=== PATIENT | female | born 1950 | race Caucasian/White ===

== ENCOUNTER 2019-03-17 10:19 | Inpatient (IN) | payer MEDICARE, OTHER ==
[~2019-03-17] VITALS: Ht 160 cm; Wt 113.6 kg
[~2019-03-17 10:19] MED LIST: ASPI-1265 PO; ATOR40TA71 PO; HYDR12.5 PO; INSU100V12 SQ; INSU100V36 SQ; LISI40TA4 PO; LORA10TA7 PO; METF-438 PO; NORT25CA PO; SENN-93 PO; SERT-153 PO
--- NOTE | 2019-03-17 10:57 | NUR ---
awaiting ed provider.
[2019-03-17 11:28] LABS: BASOPHILS % (AUTO) 0.2 % (0-1); EOSINOPHILS % (AUTO) 0.4 % (0-6); HEMATOCRIT 41.5 % (35.0-45.0); HEMOGLOBIN 14.1 g/dl (12.0-16.0); LYMPHOCYTES # (AUTO) 0.8 X10'3 (1.1-4.8); LYMPHOCYTES % (AUTO) 8.6 % (21-51); MEAN CORPUSCULAR HEMOGLOBIN 29.2 PG (27.0-31.0); MEAN CORPUSCULAR VOLUME 85.6 FL (78-98); MEAN PLATELET VOLUME 9.3 FL (7.4-10.4); MONOCYTES # (AUTO) 0.6 X10'3 (0-0.9); MONOCYTES % (AUTO) 5.9 % (2-12); NEUTROPHILS # (AUTO) 7.9 X10'3 (1.8-7.7); NEUTROPHILS % (AUTO) 84.9 % (42-75); PLATELET COUNT 73 X10'3 (140-440); RED BLOOD COUNT 4.85 X10'6 (4.20-5.60); RED CELL DISTRIBUTION WIDTH 15.1 % (11.5-14.5); WHITE BLOOD COUNT 9.3 X10'3 (4.5-11.0)
[2019-03-17 11:47] LABS: ALANINE AMINOTRANSFERASE 19 U/L (12-78); ALBUMIN 3.2 G/DL (3.4-5.0); ALKALINE PHOSPHATASE 107 IU/L (46-116); ANION GAP 7 (8-16); ASPARTATE AMINO TRANSFERASE 21 U/L (10-37); BILIRUBIN,TOTAL 1.1 MG/DL (0.1-1.0); BLOOD UREA NITROGEN 10 MG/DL (7-18); BUN/CREATININE RATIO 20.4 (6.6-38.0); CALCIUM 8.4 MG/DL (8.5-10.1); CHLORIDE 105 MMOL/L (99-107); CREATININE 0.49 MG/DL (0.40-0.90); GLUCOSE 133 MG/DL (70-104); LIPASE 72 U/L (73-393); SODIUM 143 MMOL/L (135-145); TOTAL CARBON DIOXIDE 30.9 MMOL/L (24-32); TOTAL PROTEIN 6.4 G/DL (6.4-8.2); eGFR > 90 ML/MIN
[2019-03-17 12:01] LABS: CLARITY,URINE SLIGHTLY CLOUDY (Clear); COLOR,URINE YELLOW (Yellow); GLUCOSE, URINE NEGATIVE (Neg); KETONES,URINE NEGATIVE (Neg); LEUKOCYTE ESTERASE ,URINE NEGATIVE (Neg); NITRITES, URINE NEGATIVE (Neg); OCCULT BLOOD,URINE TRACE-INTACT (Neg); PROTEIN,URINE 30 mg/dl (Neg)
--- NOTE | 2019-03-17 12:06 | NUR ---
stool sample sent to the lab.Patient on contact isolation r/o cdiff.
[2019-03-17 12:08] LABS: POTASSIUM 2.7 MMOL/L (3.5-5.1)
[2019-03-17 12:10] LABS: UA COLLECTION TYPE FOLEY CATH
[2019-03-17 12:20] LABS: MUCUS STRANDS MANY /LPF (Neg)
[2019-03-17 12:23] LABS: BACTERIA,URINE FEW /HPF (Neg); TRANSITIONAL EPI CELLS,URINE FEW /HPF; WBC,URINE 0-4 /HPF (0-4)
[2019-03-17 12:29] LABS: SQUAMOUS EPITHELIAL CELL,UR MODERATE /LPF (FEW)
[2019-03-17 12:30] LABS: COARSE GRANULAR CAST 0-3 /LPF (NEGATIVE)
[2019-03-17] MEDS ORDERED: pantoprazole 40 MG vial IV ONE (12:45)
[2019-03-17] MEDS ORDERED: potassium Cl 10 mEq/100mL bag IV ONE (12:55)
[2019-03-17] MEDS ORDERED: METF-436 PO (13:21)
[2019-03-17] MEDS ORDERED: HYDR25TA4 PO (13:21)
[2019-03-17] MEDS ORDERED: INSU100I31 SQ (13:22)
[2019-03-17] MEDS ORDERED: NADO20TA4 PO (13:22)
[2019-03-17] MEDS ORDERED: OMEP-50 PO (13:22)
[2019-03-17] MEDS: normal saline 1000ml 1,000 ML IV SCH (13:32)
[2019-03-17] MEDS ORDERED: magnesium Cl slow-release 64mg tablet PO PRN (13:35)
[2019-03-17] MEDS ORDERED: potassium CL 10mEq/100ml bag 100 ML IV PRN ×2 (13:35)
[2019-03-17] MEDS ORDERED: ondansetron/PF 4mg/2ml inj IV PRN (13:35)
[2019-03-17] MEDS ORDERED: acetaminophen 325mg tablet PO PRN ×2 (13:35)
[2019-03-17] MEDS ORDERED: mag hydrox/Alum hydrox/simeth 30ml oral suspension PO PRN (13:35)
[2019-03-17] MEDS ORDERED: magnesium 4gm in 100ml NS 100 ML IV PRN (13:35)
[2019-03-17] MEDS ORDERED: magnesium 2GM in 50ml NS 50 ML IV PRN (13:35)
[2019-03-17] MEDS ORDERED: magnesium hydroxide 30ml (MOM) UD suspension PO PRN (13:35)
[2019-03-17 13:43] LABS: C DIFF ANTIGEN POSITIVE (NEGATIVE); C DIFF SPECIMEN=DIARRHEA? ACCEPTABLE; C DIFFICILE TOXINS A&B POSITIVE (Neg)
[2019-03-17] MEDS ORDERED: metroNIDAZOLE-Flagyl 500mg/NS 100 ML IV STA (14:41)
[2019-03-17] MEDS ORDERED: dextrose ORAL solution 15 GM/59 ML bottle PO PRN ×2 (14:45)
[2019-03-17] MEDS ORDERED: MESSAGE TO PHARMACY PO ONE (14:45)
[2019-03-17] MEDS ORDERED: glucagon, human recombinant 1mg kit SUBCUT PRN (14:45)
[2019-03-17] MEDS ORDERED: dextrose 50%-water 50ml dispensing syringe IV PRN ×2 (14:45)
--- NOTE | 2019-03-17 14:46 | NUR ---
Paged Dr. Gandhi to get order for diet and also if we can start patient on Vanco for C. diff.
[2019-03-17 14:50] VITALS: BP 146/55
[2019-03-17] MEDS: vancomycin 125mg/5ml ORAL solution 5ml UD bottle PO SCH ×3 (14:50→20:04)
[2019-03-17] MEDS: potassium Cl 20 mEq SR tablet PO PRN ×2 (15:22→22:20)
[2019-03-17] MEDS ORDERED: pantoprazole 40MG/NS 100ML BAG 100 ML IV SCH (16:00)
[2019-03-17 18:00] VITALS: BP 156/60
--- NOTE | 2019-03-17 18:50 | NUR ---
Problems reprioritized. Patient report given, questions answered & plan of care reviewed with Rafa KUHN.
[2019-03-17] MEDS: metoprolol tartrate 25mg tablet PO SCH (20:05)
[2019-03-17] MEDS ORDERED: metroNIDAZOLE 500mg tablet PO SCH (21:00)
[2019-03-17] MEDS: insulin glargine (Lantus) pen - multi-dose SQ SCH (21:00)
[2019-03-18] MEDS: normal saline 1000ml 1,000 ML IV SCH ×2 (01:28→10:31)
[2019-03-18 05:19] LABS: BASOPHILS % (AUTO) 0.1 % (0-1); EOSINOPHILS % (AUTO) 0.6 % (0-6); HEMATOCRIT 38.8 % (35.0-45.0); HEMOGLOBIN 13.3 g/dl (12.0-16.0); LYMPHOCYTES # (AUTO) 0.7 X10'3 (1.1-4.8); LYMPHOCYTES % (AUTO) 12.1 % (21-51); MEAN CORPUSCULAR HEMOGLOBIN 29.6 PG (27.0-31.0); MEAN CORPUSCULAR HGB CONC 34.2 g/dL (33.0-36.5); MEAN CORPUSCULAR VOLUME 86.7 FL (78-98); MEAN PLATELET VOLUME 9.3 FL (7.4-10.4); MONOCYTES # (AUTO) 0.4 X10'3 (0-0.9); MONOCYTES % (AUTO) 7.2 % (2-12); NEUTROPHILS # (AUTO) 4.9 X10'3 (1.8-7.7); PLATELET COUNT 59 X10'3 (140-440); RED BLOOD COUNT 4.47 X10'6 (4.20-5.60); WHITE BLOOD COUNT 6.1 X10'3 (4.5-11.0)
[2019-03-18 05:23] LABS: ALBUMIN 2.8 G/DL (3.4-5.0); ANION GAP 11 (8-16); BLOOD UREA NITROGEN 11 MG/DL (7-18); BUN/CREATININE RATIO 26.8 (6.6-38.0); CALCIUM 8.2 MG/DL (8.5-10.1); CHLORIDE 107 MMOL/L (99-107); CREATININE 0.41 MG/DL (0.40-0.90); GLUCOSE 230 MG/DL (70-104); MAGNESIUM 1.7 MG/DL (1.5-2.4); SODIUM 142 MMOL/L (135-145); TOTAL CARBON DIOXIDE 24.2 MMOL/L (24-32); eGFR > 90 ML/MIN
[2019-03-18 05:27] LABS: POTASSIUM 2.9 MMOL/L (3.5-5.1)
--- NOTE | 2019-03-18 06:30 | NUR ---
Problems reprioritized. Patient report given, questions answered & plan of care reviewed with Jannette KUHN.
[2019-03-18 06:34] LABS: OCCULT BLOOD STOOL POSITIVE (Neg)
[2019-03-18 07:00] VITALS: BP 149/65
[2019-03-18] MEDS: vancomycin 125mg/5ml ORAL solution 5ml UD bottle PO SCH ×4 (07:10→20:08)
[2019-03-18] MEDS: atorvastatin 20mg tablet PO SCH (07:11)
[2019-03-18] MEDS: pantoprazole 40mg Tablet.DR PO SCH (07:11)
[2019-03-18] MEDS: potassium Cl 20 mEq SR tablet PO PRN ×3 (07:12→16:11)
[2019-03-18] MEDS: HYDROchlorothiazide 25mg tablet PO SCH (07:13)
[2019-03-18] MEDS: sertraline 50mg tablet PO SCH (07:13)
[2019-03-18] MEDS: metoprolol tartrate 25mg tablet PO SCH ×2 (07:13→20:10)
[2019-03-18] MEDS: K and/or MAG REPLACEMENT MC SCH (07:14)
[2019-03-18] MEDS ORDERED: enoxaparin 40mg/0.4ml syringe SQ SCH (08:00)
[2019-03-18] MEDS: insulin Lispro (HumaLOG) vial - multi-dose SQ SCH ×3 (09:14→20:33)
--- NOTE | 2019-03-18 10:43 | NUR ---
MD WINTERS MADE AWARE OF POTASSIUM LEVEL, PLATELET LEVEL, POSITIVE STOOL OCCULT, AND LOW GRADE FEVER. ONE TIME ONLY DOSE OF MAGNESIUM ORDERED FOR POTASSIUM ABSORPTION.
[2019-03-18 11:00] VITALS: BP 133/58
[2019-03-18] MEDS ORDERED: magnesium oxide 400mg tablet PO ONE (12:00)
--- NOTE | 2019-03-18 18:21 | NUR ---
Problems reprioritized. Patient report given, questions answered & plan of care reviewed with Jovita KUHN. Pt. has no needs at this time.
[2019-03-18 19:00] VITALS: BP 146/63
--- NOTE | 2019-03-18 19:52 | NUR ---
Nutrition consult received re: low residue diet/diarrhea/diabetes. Noted that patient is already receiving carb controlled, low residue diet. Her HgA1c is 8 and Blood Glucose ranging from 110-261 mg/dl. Per MD note patient has acute C.diff with active diarrhea, had 11 liquid bowel movements today. She has increased protein and hydrations needs d/t C.diff infection. She will need written high protein education handout with verbal review and written DM education handout with verbal review and referral to outpatient DM education class. Will provide written education when C.diff is cleared. RD will meet with patient to provide verbal education. Current appetite is great, eating 75-100% of meals and is meeting needs using IBW. Recommend: 1. continue carb controlled, low residue diet 2. patient needs written DM and written high protein education handout 3. wt per rx Addendum: 03/18/19 at [address] Amended: Links added.
[2019-03-18] MEDS: insulin glargine (Lantus) pen - multi-dose SQ SCH (20:31)
[2019-03-19] VITALS: BP 125/71
[2019-03-19 04:44] LABS: BASOPHILS % (AUTO) 0.1 % (0-1); EOSINOPHILS # (AUTO) 0.1 X10'3 (0-0.9); EOSINOPHILS % (AUTO) 1.3 % (0-6); HEMATOCRIT 36.9 % (35.0-45.0); HEMOGLOBIN 12.6 g/dl (12.0-16.0); LYMPHOCYTES # (AUTO) 0.7 X10'3 (1.1-4.8); MEAN CORPUSCULAR HEMOGLOBIN 29.5 PG (27.0-31.0); MEAN CORPUSCULAR HGB CONC 34.2 g/dL (33.0-36.5); MEAN PLATELET VOLUME 9.4 FL (7.4-10.4); MONOCYTES # (AUTO) 0.3 X10'3 (0-0.9); MONOCYTES % (AUTO) 8.3 % (2-12); NEUTROPHILS % (AUTO) 72.3 % (42-75); PLATELET COUNT 58 X10'3 (140-440); RED BLOOD COUNT 4.29 X10'6 (4.20-5.60); RED CELL DISTRIBUTION WIDTH 15.4 % (11.5-14.5); WHITE BLOOD COUNT 4.1 X10'3 (4.5-11.0)
[2019-03-19 04:49] LABS: ALBUMIN 2.6 G/DL (3.4-5.0); ANION GAP 8 (8-16); BLOOD UREA NITROGEN 8 MG/DL (7-18); BUN/CREATININE RATIO 20.5 (6.6-38.0); CHLORIDE 109 MMOL/L (99-107); CREATININE 0.39 MG/DL (0.40-0.90); GLUCOSE 268 MG/DL (70-104); MAGNESIUM 1.8 MG/DL (1.5-2.4); POTASSIUM 3.4 MMOL/L (3.5-5.1); SODIUM 143 MMOL/L (135-145); TOTAL CARBON DIOXIDE 25.9 MMOL/L (24-32); eGFR > 90 ML/MIN
--- NOTE | 2019-03-19 06:09 | NUR ---
Problems reprioritized. Patient report given, questions answered & plan of care reviewed with Jannette KUHN. Addendum: 03/19/19 at 0609 by Jovita Do RN Amended: Links added.
[2019-03-19 08:00] VITALS: BP 154/61
[2019-03-19] MEDS: K and/or MAG REPLACEMENT MC SCH (08:00)
[2019-03-19] MEDS: HYDROchlorothiazide 25mg tablet PO SCH (09:23)
[2019-03-19] MEDS: potassium Cl 20 mEq SR tablet PO PRN ×3 (09:23→17:52)
[2019-03-19] MEDS: pantoprazole 40mg Tablet.DR PO SCH (09:23)
[2019-03-19] MEDS: vancomycin 125mg/5ml ORAL solution 5ml UD bottle PO SCH ×4 (09:24→21:34)
[2019-03-19] MEDS: metoprolol tartrate 25mg tablet PO SCH ×2 (09:24→19:35)
[2019-03-19] MEDS: atorvastatin 20mg tablet PO SCH (09:24)
[2019-03-19] MEDS: sertraline 50mg tablet PO SCH (09:24)
[2019-03-19] MEDS: insulin Lispro (HumaLOG) vial - multi-dose SQ SCH ×3 (09:32→19:25)
[2019-03-19 11:00] VITALS: BP 124/70
--- NOTE | 2019-03-19 16:48 | NUR ---
Pt. removed her own rectal tube stating "it came out of place". Tube still inflated. No damage to rectal area seen, no blood noted. MD Gandhi aware. Pt. would prefer that another rectal tube NOT be placed. Provided with briefs to support any incontinence.
--- NOTE | 2019-03-19 18:28 | NUR ---
Problems reprioritized. Patient report given, questions answered & plan of care reviewed with Bao KUHN. Pt. has no needs at this time, eating dinner in room awake and alert, able to communicate.
[2019-03-19 18:40] VITALS: BP 128/53
[2019-03-19] MEDS: insulin glargine (Lantus) pen - multi-dose SQ SCH (21:37)
[2019-03-20] VITALS: BP 105/59
[2019-03-20 06:10] LABS: BASOPHILS % (AUTO) 0.3 % (0-1); EOSINOPHILS # (AUTO) 0.1 X10'3 (0-0.9); EOSINOPHILS % (AUTO) 1.6 % (0-6); HEMATOCRIT 35.8 % (35.0-45.0); HEMOGLOBIN 12.2 g/dl (12.0-16.0); LYMPHOCYTES # (AUTO) 0.9 X10'3 (1.1-4.8); LYMPHOCYTES % (AUTO) 27.1 % (21-51); MEAN CORPUSCULAR HEMOGLOBIN 29.5 PG (27.0-31.0); MEAN CORPUSCULAR HGB CONC 34.1 g/dL (33.0-36.5); MEAN CORPUSCULAR VOLUME 86.4 FL (78-98); MEAN PLATELET VOLUME 9.7 FL (7.4-10.4); MONOCYTES # (AUTO) 0.3 X10'3 (0-0.9); MONOCYTES % (AUTO) 10.2 % (2-12); NEUTROPHILS % (AUTO) 60.8 % (42-75); PLATELET COUNT 65 X10'3 (140-440); RED BLOOD COUNT 4.14 X10'6 (4.20-5.60); RED CELL DISTRIBUTION WIDTH 14.8 % (11.5-14.5); WHITE BLOOD COUNT 3.3 X10'3 (4.5-11.0)
[2019-03-20 06:14] LABS: ALBUMIN 2.6 G/DL (3.4-5.0); ANION GAP 7 (8-16); BLOOD UREA NITROGEN 7 MG/DL (7-18); BUN/CREATININE RATIO 15.2 (6.6-38.0); CALCIUM 8.3 MG/DL (8.5-10.1); CHLORIDE 111 MMOL/L (99-107); CREATININE 0.46 MG/DL (0.40-0.90); GLUCOSE 152 MG/DL (70-104); MAGNESIUM 1.7 MG/DL (1.5-2.4); POTASSIUM 3.5 MMOL/L (3.5-5.1); SODIUM 146 MMOL/L (135-145); TOTAL CARBON DIOXIDE 27.7 MMOL/L (24-32); eGFR > 90 ML/MIN
--- NOTE | 2019-03-20 06:45 | NUR ---
Problems reprioritized. Patient report given, questions answered & plan of care reviewed with LEONEL. Addendum: 03/20/19 at 0646 by Carlton Easton RN Amended: Links added.
--- NOTE | 2019-03-20 06:49 | NUR ---
Patient in room [facility] 341. I have received report from Bao KUHN and had the opportunity to ask questions and assume patient care.
[2019-03-20 07:00] VITALS: BP 140/58
[2019-03-20] MEDS: pantoprazole 40mg Tablet.DR PO SCH (07:30)
[2019-03-20] MEDS: K and/or MAG REPLACEMENT MC SCH (08:00)
[2019-03-20] MEDS: metoprolol tartrate 25mg tablet PO SCH (08:16)
[2019-03-20] MEDS: sertraline 50mg tablet PO SCH (08:16)
[2019-03-20] MEDS: atorvastatin 20mg tablet PO SCH (08:17)
[2019-03-20] MEDS: vancomycin 125mg/5ml ORAL solution 5ml UD bottle PO SCH ×3 (08:18→16:58)
[2019-03-20] MEDS: HYDROchlorothiazide 25mg tablet PO SCH (08:18)
[2019-03-20] MEDS: insulin Lispro (HumaLOG) vial - multi-dose SQ SCH ×2 (08:20→13:53)
[2019-03-20 11:00] VITALS: BP 136/63
--- NOTE | 2019-03-20 15:27 | NUR ---
F/u: Pt PO 100% meals meeting protein needs this admit. Pt seen by MARIUSZ for written/verbal DM ed w/ RD contact information provided. Pt declines additional DM concerns at this time. Addendum: 03/20/19 at [address] Amended: Links added.
[2019-03-20] MEDS ORDERED: VANC5VIA PO (16:03)
--- NOTE | 2019-03-20 17:20 | NUR ---
Discharged patient home accompanied by her family. Discharge instructions given to patient, patient verbalized understanding of all instructions made. Peripheral IV catheter removed, tip intact. A1C and diabetes survival skills information as well as information about C. diff discussed with patient and family at bedside. Prescription for Vanco PO called in by Rojas scott [facility] pharmacy at [facility] Instructed patient to ensure she has all her belongings with her. Night time dose of Vanco PO sent with patient, hospital pharmacy staff said that I could sent the night time dose of Vanco PO with the patient upon discharge.
== END 2019-03-20 17:27 | disposition home or self-care (01) | DRG 373 ==
LOC: ER 10:20 → ED HOLD 14:41 → SUR 3N 14:42
PROVIDERS: ADMIT Hospitalist; ATTEND Family Medicine
DX: A04.72 Enterocolitis due to Clostridium difficile, not specified as recurrent (principal); K76.0 Fatty (change of) liver, not elsewhere classified; D69.6 Thrombocytopenia, unspecified; E78.5 Hyperlipidemia, unspecified; E86.0 Dehydration; E11.9 Type 2 diabetes mellitus without complications; E87.6 Hypokalemia; F32.9 Major depressive disorder, single episode, unspecified; I10 Essential (primary) hypertension; K21.9 Gastro-esophageal reflux disease without esophagitis; K74.60 Unspecified cirrhosis of liver; Z88.8 Allergy status to other drugs, medicaments and biological substances; Z90.49 Acquired absence of other specified parts of digestive tract; Z79.899 Other long term (current) drug therapy; Z79.82 Long term (current) use of aspirin
CPT/HCPCS: 36415; 80048; 80053; 81001; 82272; 82948; 83036; 83690; 83735; 84132; 85025; 85610; 86885; 86900; 86901; 87081; 87324; 87449; 96365; 99285; C9113; G0378; J1815; J3480; J7030

== ENCOUNTER 2022-07-23 08:31 | Emergency (ER) | payer MEDICARE, MEDICAID ==
[~2022-07-23] VITALS: Ht 160 cm; Wt 120.5 kg
[~2022-07-23 08:31] MED LIST changes: -ASPI-1265 PO; -HYDR12.5 PO; +HYDR25TA4 PO; +INSU100I31 SQ; -INSU100V12 SQ; -INSU100V36 SQ; -LISI40TA4 PO; -LORA10TA7 PO; -METF-438 PO; +NADO20TA4 PO; -NORT25CA PO; +OMEP20CA16 PO; -SENN-93 PO; +VANC5VIA PO
[2022-07-23 11:19] LABS: BASOPHILS # (AUTO) 0.1 X10'3 (0-0.2); BASOPHILS % (AUTO) 1.6 % (0-1); EOSINOPHILS # (AUTO) 0.2 X10'3 (0-0.9); EOSINOPHILS % (AUTO) 4.8 % (0-6); HEMATOCRIT 37.7 % (35.0-45.0); HEMOGLOBIN 12.5 g/dl (12.0-16.0); LYMPHOCYTES # (AUTO) 0.5 X10'3 (1.1-4.8); LYMPHOCYTES % (AUTO) 11.1 % (21-51); MEAN CORPUSCULAR HEMOGLOBIN 28.7 PG (27.0-31.0); MEAN CORPUSCULAR HGB CONC 33.1 g/dL (33.0-36.5); MEAN CORPUSCULAR VOLUME 86.9 FL (78-98); MEAN PLATELET VOLUME 8.7 FL (7.4-10.4); MONOCYTES # (AUTO) 0.3 X10'3 (0-0.9); MONOCYTES % (AUTO) 6.1 % (2-12); NEUTROPHILS # (AUTO) 3.6 X10'3 (1.8-7.7); NEUTROPHILS % (AUTO) 76.4 % (42-75); PLATELET COUNT 53 X10'3 (140-440); RED BLOOD COUNT 4.33 X10'6 (4.20-5.60); RED CELL DISTRIBUTION WIDTH 15.6 % (11.5-14.5); WHITE BLOOD COUNT 4.7 X10'3 (4.5-11.0)
[2022-07-23 11:50] LABS: ALANINE AMINOTRANSFERASE 29 U/L (12-78); ALBUMIN 3.1 G/DL (3.4-5.0); ALKALINE PHOSPHATASE 123 IU/L (46-116); ANION GAP 6 (8-16); ASPARTATE AMINO TRANSFERASE 28 U/L (10-37); BILIRUBIN,TOTAL 0.8 MG/DL (0.1-1.0); BLOOD UREA NITROGEN 13 MG/DL (7-18); BUN/CREATININE RATIO 33.3 (10.0-20.0); CALCIUM 8.7 MG/DL (8.5-10.1); CHLORIDE 110 MMOL/L (99-107); CREATININE 0.39 MG/DL (0.40-0.90); ETHANOL < 0.010 GM/DL (0.0-0.010); GLUCOSE 179 MG/DL (70-104); POTASSIUM 3.7 MMOL/L (3.5-5.1); SODIUM 146 MMOL/L (135-145); TOTAL CARBON DIOXIDE 29.6 MMOL/L (24-32); TOTAL PROTEIN 6.1 G/DL (6.4-8.2); eGFR > 90 ML/MIN
[2022-07-23 13:25] VITALS: BP 136/69
== END 2022-07-23 13:26 | disposition home or self-care (01) ==
LOC: ER 08:32
DX: N93.8 Other specified abnormal uterine and vaginal bleeding (principal); I10 Essential (primary) hypertension; E11.9 Type 2 diabetes mellitus without complications; Z88.1 Allergy status to other antibiotic agents; Z88.8 Allergy status to other drugs, medicaments and biological substances; Z79.899 Other long term (current) drug therapy; Z79.1 Long term (current) use of non-steroidal anti-inflammatories (NSAID); Z79.84 Long term (current) use of oral hypoglycemic drugs
CPT/HCPCS: 36415; 76856; 80053; 80320; 85025; 85610; 86885; 86900; 86901; 99284

== ENCOUNTER 2022-12-09 23:29 | Inpatient (IN) | payer MEDICARE, MEDICAID ==
[~2022-12-09] VITALS: Ht 160 cm; Wt 109.8 kg
[2022-12-10 00:56] LABS: HEMOGLOBIN 9.1 g/dl (12.0-16.0); MEAN PLATELET VOLUME 9.2 FL (7.4-10.4); RED BLOOD COUNT 4.11 X10'6 (4.20-5.60)
[2022-12-10 00:58] LABS: BASOPHILS % (AUTO) 0.2 % (0-1); EOSINOPHILS # (AUTO) 0.1 X10'3 (0-0.9); EOSINOPHILS % (AUTO) 1.3 % (0-6); HEMATOCRIT 29.2 % (35.0-45.0); LYMPHOCYTES # (AUTO) 0.5 X10'3 (1.1-4.8); LYMPHOCYTES % (AUTO) 11.3 % (21-51); MEAN CORPUSCULAR HEMOGLOBIN 22.2 PG (27.0-31.0); MEAN CORPUSCULAR HGB CONC 31.2 g/dL (33.0-36.5); MONOCYTES # (AUTO) 0.5 X10'3 (0-0.9); MONOCYTES % (AUTO) 12.2 % (2-12); NEUTROPHILS # (AUTO) 3.3 X10'3 (1.8-7.7); PLATELET COUNT 69 X10'3 (140-440); RED CELL DISTRIBUTION WIDTH 19.2 % (11.5-14.5); WHITE BLOOD COUNT 4.3 X10'3 (4.5-11.0)
[2022-12-10 01:11] LABS: ALANINE AMINOTRANSFERASE 22 U/L (12-78); ALBUMIN/GLOBULIN RATIO 0.9 (1.1-1.5); ALKALINE PHOSPHATASE 100 IU/L (46-116); ANION GAP 7 (8-16); ASPARTATE AMINO TRANSFERASE 24 U/L (10-37); BLOOD UREA NITROGEN 14 MG/DL (7-18); BUN/CREATININE RATIO 26.4 (10.0-20.0); CALCIUM 8.3 MG/DL (8.5-10.1); CHLORIDE 106 MMOL/L (99-107); CREATININE 0.53 MG/DL (0.40-0.90); GLUCOSE 168 MG/DL (70-104); SODIUM 140 MMOL/L (135-145); TOTAL CARBON DIOXIDE 27.2 MMOL/L (24-32); TOTAL PROTEIN 6.3 G/DL (6.4-8.2); eCRCL 78 ML/MIN; eGFR > 90 ML/MIN
[2022-12-10 01:14] LABS: POTASSIUM 3.1 MMOL/L (3.5-5.1)
--- NOTE | 2022-12-10 01:35 | NUR ---
Maia Luna: daughter [phone]
[2022-12-10 01:49] LABS: ANISOCYTOSIS 2+; MICROCYTOSIS 1+; PLATELET ESTIMATE DECREASED
[2022-12-10 01:51] LABS: POLYCHROMASIA FEW
[2022-12-10 02:17] LABS: BILIRUBIN,URINE NEGATIVE (Neg); CLARITY,URINE SLIGHTLY CLOUDY (Clear); COLOR,URINE YELLOW (Yellow); GLUCOSE, URINE NEGATIVE (Neg); KETONES,URINE NEGATIVE (Neg); LEUKOCYTE ESTERASE ,URINE MODERATE (Neg); NITRITES, URINE POSITIVE (Neg); OCCULT BLOOD,URINE SMALL (Neg); PROTEIN,URINE TRACE mg/dl (Neg); UROBILINOGEN,URINE 0.2 E.U/dL (0.2-1.0)
[2022-12-10 02:21] LABS: UA COLLECTION TYPE STRAIGHT CATH
[2022-12-10 02:24] LABS: WBC,URINE TNTC /HPF (0-4)
[2022-12-10 02:25] LABS: BACTERIA,URINE 4+ /HPF (Neg); FINE GRANULAR CAST 0-3 /LPF (NEGATIVE); SQUAMOUS EPITHELIAL CELL,UR FEW /LPF (FEW); TRANSITIONAL EPI CELLS,URINE FEW /HPF; WBC CLUMPS,URINE MODERATE /HPF (NEGATIVE)
[2022-12-10] MEDS ORDERED: iohexol 300mg/ml 100ml inj. ONE (04:24)
[2022-12-10] MEDS ORDERED: CefTRIAXone 2gm/D5W 50ml BAG 50 ML IV ONE (06:50)
[2022-12-10] MEDS ORDERED: normal saline 1000ML IV soln IV ONE (06:50)
[2022-12-10 09:03] LABS: C DIFF ANTIGEN POSITIVE (NEGATIVE); C DIFF SPECIMEN=DIARRHEA? ACCEPTABLE; C DIFFICILE TOXINS A&B POSITIVE (Neg)
[2022-12-10] MEDS ORDERED: vancomycin 125mg/5ml ORAL solution 5ml UD oral syringe PO ONE (09:35)
[2022-12-10] MEDS ORDERED: ondansetron/PF 4mg/2ml inj IV PRN (13:05)
[2022-12-10] MEDS ORDERED: HYDROcodone/acetaminophen 10/325mg tab PO PRN (13:05)
[2022-12-10] MEDS ORDERED: potassium Cl 40MEQ/1/2NS 520ml 520 ML IV PRN (13:05)
[2022-12-10] MEDS ORDERED: mag hydrox/Alum hydrox/simeth 30ml oral suspension PO PRN (13:05)
[2022-12-10] MEDS ORDERED: acetaminophen 325mg tablet PO PRN ×2 (13:05)
[2022-12-10] MEDS ORDERED: magnesium 2GM in 50ml NS 50 ML IV PRN (13:05)
[2022-12-10] MEDS ORDERED: potassium Cl 20 mEq SR tablet PO PRN (13:05)
[2022-12-10] MEDS ORDERED: ondansetron 4mg rapidly disintigrating tab PO PRN (13:05)
[2022-12-10] MEDS ORDERED: acetaminophen 650mg rectal suppository RC PRN (13:05)
[2022-12-10] MEDS ORDERED: HYDROcodone/acetaminophen 5mg/325mg tablet PO PRN (13:05)
[2022-12-10] MEDS ORDERED: magnesium Cl slow-release 64mg tablet PO PRN (13:05)
[2022-12-10] MEDS ORDERED: magnesium hydroxide 30ml (MOM) UD suspension PO PRN (13:05)
[2022-12-10] MEDS ORDERED: magnesium 4gm in 100ml NS 100 ML IV PRN (13:05)
[2022-12-10] MEDS ORDERED: vancomycin 125mg/5ml ORAL solution 5ml UD oral syringe PO SCH (14:00)
[2022-12-10] MEDS: vancomycin 125mg/5ml ORAL solution 5ml UD oral syringe PO SCH ×2 (14:41→20:00)
[2022-12-10] MEDS: potassium Cl 20mEq in NS 1,000 ML IV SCH ×2 (14:51→23:05)
[2022-12-10] MEDS ORDERED: SERT-433 PO (14:51)
[2022-12-10] MEDS ORDERED: INSU200I4 SQ (14:51)
[2022-12-10] MEDS ORDERED: SEMA2PEN SQ (14:51)
[2022-12-10] MEDS ORDERED: APIX5TAB3 PO (14:51)
[2022-12-10] MEDS ORDERED: NADO20TA4 PO (14:51)
[2022-12-10] MEDS ORDERED: SPIR100T5 PO (14:51)
[2022-12-10] MEDS ORDERED: FURO40TA4 PO (14:51)
[2022-12-10] MEDS ORDERED: LOSA25TA41 PO (14:54)
[2022-12-10] MEDS ORDERED: HYDR25TA4 PO (14:54)
[2022-12-10] MEDS ORDERED: ATOR40TA72 PO (14:54)
[2022-12-10] MEDS ORDERED: CHOL100017 PO (14:54)
[2022-12-10] MEDS ORDERED: INSU100I8 SQ (14:56)
--- NOTE | 2022-12-10 18:01 | NUR ---
patient refused vitals stated she didn't want to stay anymore and wanted to leave. this nurse told patient to hangout for a second and wait for the charge nurse to come speak with her. patient stated ok and is sitting on bed currently waiting.
--- NOTE | 2022-12-10 18:57 | NUR ---
pt is currently refusing vitals and all iv medications. pt states she wants to leave due to having to wait for a bed, being tangled in wires, and fear of falling since no one will help her. pt educated on the importance of recieving medical attention. pt also given a call light and educated on the use. pt given ice chips as requested and pt states she is going to try to get some sleep. dr. ladd notified.
[2022-12-10] MEDS: K and/or MAG REPLACEMENT MC SCH (19:07)
[2022-12-10] MEDS: docusate sod 100mg capsule PO SCH (19:07)
--- NOTE | 2022-12-10 19:44 | NUR ---
PT HAS RIPPED OUT THE RECTAL TUBE. MD DURAN NOTIFIED.
[2022-12-10] MEDS ORDERED: enoxaparin 40mg/0.4ml syringe SQ SCH (20:00)
--- NOTE | 2022-12-10 20:24 | NUR ---
PT REFUSED VITALS.
[2022-12-10] MEDS ORDERED: insulin glargine (Lantus) pen - multi-dose SQ SCH ×2 (21:00)
[2022-12-10] MEDS ORDERED: temazepam 15mg capsule PO PRN (21:00)
[2022-12-11] MEDS: vancomycin 125mg/5ml ORAL solution 5ml UD oral syringe PO SCH ×4 (02:11→20:37)
[2022-12-11] MEDS: potassium Cl 20mEq in NS 1,000 ML IV SCH ×2 (05:38→20:37)
[2022-12-11] MEDS: docusate sod 100mg capsule PO SCH (08:00)
[2022-12-11] MEDS ORDERED: furosemide 40mg tablet PO SCH (08:00)
[2022-12-11] MEDS: K and/or MAG REPLACEMENT MC SCH ×2 (08:00→20:00)
[2022-12-11] MEDS: NADOLOL 20 MG PO SCH (08:00)
[2022-12-11] MEDS: apixaban 5mg tablet PO SCH (08:00)
[2022-12-11] MEDS ORDERED: sertraline 50mg tablet PO SCH (08:00)
[2022-12-11] MEDS: cholecalciferol (vitamin D3) 1,000 unit (25mcg) tablet PO SCH (08:08)
[2022-12-11] MEDS: atorvastatin 20mg tablet PO SCH (08:09)
[2022-12-11 08:15] LABS: BASOPHILS % (AUTO) 0.1 % (0-1); EOSINOPHILS % (AUTO) 0.6 % (0-6); HEMOGLOBIN 9.1 g/dl (12.0-16.0); LYMPHOCYTES # (AUTO) 0.3 X10'3 (1.1-4.8); LYMPHOCYTES % (AUTO) 6.3 % (21-51); MEAN CORPUSCULAR HEMOGLOBIN 22.4 PG (27.0-31.0); MEAN CORPUSCULAR HGB CONC 31.6 g/dL (33.0-36.5); MEAN CORPUSCULAR VOLUME 70.9 FL (78-98); MEAN PLATELET VOLUME 9.1 FL (7.4-10.4); MONOCYTES # (AUTO) 0.4 X10'3 (0-0.9); NEUTROPHILS # (AUTO) 3.8 X10'3 (1.8-7.7); PLATELET COUNT 73 X10'3 (140-440); RED BLOOD COUNT 4.09 X10'6 (4.20-5.60); RED CELL DISTRIBUTION WIDTH 19.6 % (11.5-14.5); WHITE BLOOD COUNT 4.5 X10'3 (4.5-11.0)
[2022-12-11] MEDS ORDERED: spironolactone 25 MG tablet PO SCH (08:30)
[2022-12-11 09:02] LABS: ALANINE AMINOTRANSFERASE 24 U/L (12-78); ALBUMIN 2.9 G/DL (3.4-5.0); ALBUMIN/GLOBULIN RATIO 0.9 (1.1-1.5); ALKALINE PHOSPHATASE 96 IU/L (46-116); ANION GAP 11 (8-16); ASPARTATE AMINO TRANSFERASE 23 U/L (10-37); BLOOD UREA NITROGEN 15 MG/DL (7-18); CALCIUM 8.2 MG/DL (8.5-10.1); CHLORIDE 106 MMOL/L (99-107); GLUCOSE 222 MG/DL (70-104); PHOSPHORUS 2.8 MG/DL (2.3-4.5); SODIUM 141 MMOL/L (135-145); TOTAL CARBON DIOXIDE 23.6 MMOL/L (24-32); TOTAL PROTEIN 6.1 G/DL (6.4-8.2); eCRCL 83 ML/MIN; eGFR > 90 ML/MIN
[2022-12-11 09:13] LABS: POTASSIUM 2.7 MMOL/L (3.5-5.1)
--- NOTE | 2022-12-11 09:16 | NUR ---
Paged Dr. Payne PAGER ID: [phone] MESSAGE: VIANEY Kerr RN RE: Allie Avendano. Reporting critical lab K 2.7. Will replace per protocol. She also refused her Eliquis and Lasix this am
[2022-12-11] MEDS: potassium Cl 20 mEq SR tablet PO PRN ×3 (09:40→21:33)
[2022-12-11 10:44] LABS: HEMOGLOBIN A1C 6.2 % (4.5-6.2)
[2022-12-11] MEDS: losartan 25mg tablet PO SCH (11:33)
--- NOTE | 2022-12-11 11:39 | NUR ---
Paged Dr. Payne PAGER ID: [phone] MESSAGE: shiloh Kerr RN RE: Allie Avendano. Pt blood sugar 201 this am and now its 249. She got Lantus last night, no order for Humalog for hyperglycemia protocol. Can we put her on hyperglycemia/hypoglycemia protocol?
[2022-12-11] MEDS ORDERED: dextrose 50%-water 50ml dispensing syringe IV PRN ×2 (12:50)
[2022-12-11] MEDS ORDERED: DEXTROSE 15 GM of carb/4 tabs (each vial/BOTTLE has 4 tablets) PO PRN ×2 (12:50)
[2022-12-11] MEDS ORDERED: glucagon, human recombinant 1mg kit SUBCUT PRN (12:50)
[2022-12-11] MEDS: insulin Lispro (HumaLOG) vial - multi-dose SQ SCH ×3 (15:00→21:36)
--- NOTE | 2022-12-11 15:34 | NUR ---
Attempted to give report to the nurse. Nurse was not available to take report currently
[2022-12-11 16:35] VITALS: BP 125/45; PULSE 91; RESP 18; TEMP 98.9; O2SAT 98
[2022-12-11 18:00] VITALS: BP 131/63; PULSE 69; RESP 18; TEMP 98.2; O2SAT 97
--- NOTE | 2022-12-11 18:47 | NUR ---
Patient in room [facility]TH[facility] 4016. I have received report from SP Westfall and had the opportunity to ask questions and assume patient care.
[2022-12-11 19:00] VITALS: RESP 16; O2SAT 96
[2022-12-11] MEDS ORDERED: insulin glargine (Lantus) pen - multi-dose SQ SCH (21:00)
[2022-12-11 22:00] VITALS: BP 110/40; PULSE 97; RESP 16; TEMP 98.4; O2SAT 96
[2022-12-12] MEDS: potassium Cl 20 mEq SR tablet PO PRN ×2 (01:45→05:41)
[2022-12-12] MEDS: vancomycin 125mg/5ml ORAL solution 5ml UD oral syringe PO SCH ×2 (01:45→08:22)
[2022-12-12] MEDS: potassium Cl 20mEq in NS 1,000 ML IV SCH (05:43)
[2022-12-12 06:00] VITALS: BP 131/43; PULSE 83; RESP 17; TEMP 97.5; O2SAT 98
[2022-12-12 06:18] LABS: ALANINE AMINOTRANSFERASE 17 U/L (12-78); ALBUMIN 2.6 G/DL (3.4-5.0); ALBUMIN/GLOBULIN RATIO 0.8 (1.1-1.5); ALKALINE PHOSPHATASE 83 IU/L (46-116); ANION GAP 10 (8-16); ASPARTATE AMINO TRANSFERASE 22 U/L (10-37); BILIRUBIN,TOTAL 0.7 MG/DL (0.1-1.0); BLOOD UREA NITROGEN 12 MG/DL (7-18); BUN/CREATININE RATIO 26.1 (10.0-20.0); CALCIUM 8.2 MG/DL (8.5-10.1); CHLORIDE 110 MMOL/L (99-107); CREATININE 0.46 MG/DL (0.40-0.90); GLUCOSE 194 MG/DL (70-104); PHOSPHORUS 2.8 MG/DL (2.3-4.5); POTASSIUM 3.8 MMOL/L (3.5-5.1); SODIUM 143 MMOL/L (135-145); TOTAL CARBON DIOXIDE 23.3 MMOL/L (24-32); TOTAL PROTEIN 5.7 G/DL (6.4-8.2); eCRCL 90 ML/MIN; eGFR > 90 ML/MIN
[2022-12-12 06:38] LABS: BASOPHILS % (AUTO) 0.2 % (0-1); EOSINOPHILS # (AUTO) 0.1 X10'3 (0-0.9); EOSINOPHILS % (AUTO) 2.5 % (0-6); HEMATOCRIT 29.1 % (35.0-45.0); HEMOGLOBIN 9.1 g/dl (12.0-16.0); LYMPHOCYTES # (AUTO) 0.5 X10'3 (1.1-4.8); LYMPHOCYTES % (AUTO) 10.6 % (21-51); MEAN CORPUSCULAR HEMOGLOBIN 22.2 PG (27.0-31.0); MEAN CORPUSCULAR HGB CONC 31.3 g/dL (33.0-36.5); MONOCYTES # (AUTO) 0.4 X10'3 (0-0.9); MONOCYTES % (AUTO) 8.8 % (2-12); NEUTROPHILS # (AUTO) 3.4 X10'3 (1.8-7.7); NEUTROPHILS % (AUTO) 77.9 % (42-75); PLATELET COUNT 80 X10'3 (140-440); RED CELL DISTRIBUTION WIDTH 19.5 % (11.5-14.5); WHITE BLOOD COUNT 4.4 X10'3 (4.5-11.0)
--- NOTE | 2022-12-12 06:38 | NUR ---
Problems reprioritized. Patient report given, questions answered & plan of care reviewed with edna MILLER.
[2022-12-12 07:00] VITALS: RESP 17; O2SAT 98
[2022-12-12 07:36] LABS: ANISOCYTOSIS 2+; ELLIPTOCYTES FEW; MICROCYTOSIS 1+; PLATELET ESTIMATE DECREASED; POIKILOCYTOSIS FEW
[2022-12-12] MEDS: K and/or MAG REPLACEMENT MC SCH (08:00)
[2022-12-12] MEDS ORDERED: sertraline 25mg tablet PO SCH (08:00)
[2022-12-12] MEDS: NADOLOL 20 MG PO SCH (08:00)
[2022-12-12] MEDS: cholecalciferol (vitamin D3) 1,000 unit (25mcg) tablet PO SCH (08:23)
[2022-12-12] MEDS: atorvastatin 20mg tablet PO SCH (08:23)
[2022-12-12] MEDS: apixaban 5mg tablet PO SCH (08:23)
[2022-12-12] MEDS: losartan 25mg tablet PO SCH (08:23)
[2022-12-12 10:00] VITALS: BP 119/147; PULSE 92; RESP 18; TEMP 98; O2SAT 98
[2022-12-12] MEDS ORDERED: FURO20TA4 PO (11:00)
[2022-12-12] MEDS ORDERED: VANC5VIA PO (11:00)
--- NOTE | 2022-12-12 11:30 | NUR ---
[employer] documentation: I have reviewed and agree with all interventions, assessments performed and documented by Laureano Smith LVN .
--- NOTE | 2022-12-12 13:13 | NUR ---
Pt stable for d/c. IV discontinued prior to discharge. Patient left with all belongings. Patient was wheeled down to lobby with family member present. Patient left in private vehicle to go home. D/c @ 12:50
== END 2022-12-12 12:50 | disposition home or self-care (01) | DRG 372 ==
LOC: ER 23:31 → ED HOLD 12-10 13:05 → EDBEDREQ 12-11 14:33 → ORTHO 4S 12-11 16:10
PROVIDERS: ADMIT Family Medicine; ATTEND Family Medicine
PROC: BW211ZZ Computerized Tomography (CT Scan) of Abdomen and Pelvis using Low Osmolar Contrast (ICD-10-PCS; principal; 2022-12-10)
DX: A04.72 Enterocolitis due to Clostridium difficile, not specified as recurrent (principal); N39.0 Urinary tract infection, site not specified; E87.6 Hypokalemia; D50.9 Iron deficiency anemia, unspecified; I10 Essential (primary) hypertension; E78.5 Hyperlipidemia, unspecified; K76.0 Fatty (change of) liver, not elsewhere classified; E11.9 Type 2 diabetes mellitus without complications; T46.6X5A Adverse effect of antihyperlipidemic and antiarteriosclerotic drugs, initial encounter; T43.225A Adverse effect of selective serotonin reuptake inhibitors, initial encounter; T50.0X5A Adverse effect of mineralocorticoids and their antagonists, initial encounter; K74.60 Unspecified cirrhosis of liver; Z90.710 Acquired absence of both cervix and uterus; Z85.42 Personal history of malignant neoplasm of other parts of uterus; Z83.3 Family history of diabetes mellitus; Z80.9 Family history of malignant neoplasm, unspecified; Z79.899 Other long term (current) drug therapy; Z86.19 Personal history of other infectious and parasitic diseases; Z98.84 Bariatric surgery status; Z88.8 Allergy status to other drugs, medicaments and biological substances; Z90.49 Acquired absence of other specified parts of digestive tract; Y92.89 Other specified places as the place of occurrence of the external cause
CPT/HCPCS: 36415; 74177; 80053; 81001; 82948; 83036; 83605; 83735; 84100; 84132; 84145; 85008; 85025; 87040; 87077; 87081; 87088; 87186; 87324; 87449; 97116; 97161; 97530; 99285; A4314; G0378; J0696; J1815; J3480; J3490; J7030; Q9967